=== PATIENT | female | born 1990 | race Two or more races ===

== ENCOUNTER 2021-08-13 09:52 | Inpatient (IN) | payer OTHER ==
[~2021-08-13] VITALS: Ht 152.4 cm; Wt 60.8 kg
[2021-08-13] MEDS ORDERED: PRENATAL TABLE1 EAC1 PO (11:06)
== END 2021-08-15 14:34 | disposition home or self-care (01) | DRG 807 ==
LOC: LDR 09:52 → OB/GYN 09:52
PROVIDERS: ADMIT Obstetrics & Gynecology; ATTEND Obstetrics & Gynecology
PROC: 10E0XZZ Delivery of Products of Conception, External Approach (ICD-10-PCS; principal; 2021-08-13)
PROC: 0KQM0ZZ Repair Perineum Muscle, Open Approach (ICD-10-PCS; 2021-08-13)
PROC: 10907ZC Drainage of Amniotic Fluid, Therapeutic from Products of Conception, Via Natural or Artificial Opening (ICD-10-PCS; 2021-08-13)
PROC: 4A1HXFZ Monitoring of Products of Conception, Cardiac Rhythm, External Approach (ICD-10-PCS; 2021-08-13)
DX: O70.1 Second degree perineal laceration during delivery (principal); Z37.0 Single live birth; Z3A.39 39 weeks gestation of pregnancy